=== PATIENT | male | born 1995 | race Caucasian/White ===

== ENCOUNTER 2025-08-20 15:34 | Outpatient (AMB) | payer MEDICAID, SELFPAY ==
--- NOTE | 2025-08-20 15:54 | A.OFFVIS_ITS ---
Intake Visit Reasons: f/u Accompanied by: Parent Allergies No Known Allergies Allergy (Verified 08/20/25 15:58) Medication List - Last Reconciled 08/20/25 by Concha Baltazar CNP fluoxetine 20 mg PO DAILY levetiracetam 500 mg PO BID 90 days melatonin-lemon balm leaf extr 10-1 mg 1 tab PO BEDTIME HPI Comments Details: 30-year-old man with severe autism resulting in inability to communicate with seizure disorder. The first one happened in 2021. He was at home with his father and eating when suddenly he became unresponsive, stiffened, his eyes rolled back, and started to shake. He was choking and his father took the food out of his mouth. He shook for a few minutes and his face became blue. EMS was called a nd he was still not back to baseline when they arrive. He was taken to [facility] where his brain scan apparently was ok and an EEG was ok. [facility] doctors suggested video EEG monitoring but his father was not comfortable leaving him in the hospital. He had seizure on 06/29/2024. He was sitting down and fell forward on the ground where he started shaking for about 90 seconds. He was taken to [facility] and found to have low levetiracetam levels. He was doing okay. He was taking levetiracetam twice a day. No medication side effects. No further spells. Sleep was okay. [facility] Medical History (Updated 08/20/25 @ 15:58 by Concha Baltazar CNP) Generalized seizure disorder Autism Review of Systems Const Denies chills, Denies daytime sleepiness, Denies difficulty sleeping, Denies fatigue, Denies fever(s), Denies frequent falls, Denies headache(s), Denies increased appetite, Denies poor appetite, Denies snoring, Denies weakness, Denies weight gain and Denies weight loss Eyes Denies loss of vision ENT Denies vertigo, Denies dizziness and Denies headache(s) Card Denies chest pain at rest, Denies chest pain with activity, Denies syncope, Denies leg edema and Denies palpitations Resp Denies snoring GI Denies constipation, Denies heartburn, Denies diarrhea and Denies nausea Denies urinary frequency, Denies urinary incontinence and Denies urinary urgency Musc Denies abnormal gait, Denies numbness and Denies tingling Skin/Breast Denies dry skin and Denies rash Neuro Denies abnormal gait, Denies vertigo, Denies dizziness, Denies syncope, Denies frequent falls, Denies headache(s), Denies lack of coordination, Denies loss of vision, Denies memory loss, Denies numbness, Denies restless legs, Denies seizure-like activity, Denies tingling, Denies paresthesias, Denies tremor(s) and Denies weakness Psych Denies anxiety, Denies depression, Denies auditory hallucinations, Denies memory loss, Denies visual hallucinations and Denies suicidal ideation Endo Denies fatigue and Denies palpitations Physical Exam Const Other: General Appearance:? normal, in no acute distress. Skin:? no rashes, no significant birthmarks. Heart:? S1, S2 normal, no murmurs. Lungs:? clear anteriorly and posteriorly. Extremities:? no edema. Psych:? alert, oriented, cognitive function intact, cooperative with exam. Neuro Other: Mental Status:?Alert and awake with limited verbal output. Makes noises. Calm Cranial Nerves:?Pupils are equal, round and reactive to light. External occular muscles are intact. Visual early are full. Face is symmetrical. Facial sensations are normal. Tongue is midline. Palate elevates symmetrically. Shoulder shrugging is normal. Hearing to bedside conversation is normal. Sensory Exam:?....? Coordination:?No ataxia,?no titubation.? Gait Exam: Within normal limits. Cerebellar Signs:?[id number] is okay. Extrapyramidal System:?No tremor, rigidity with normal facial expressions.? Pronator Drift:?Not present.? Involuntary Movements:?No tremors seen.? Speech:?Normal.? Results Reviewed Results Reviewed: Routine EEG at off in March 2024: OK. Assessment & Plan Assessment & Plan (1) Generalized seizure disorder: Code(s): G40.309 - Generalized idiopathic epilepsy and epileptic syndromes, not intractable, without status epilepticus Category: Medical Plan: Continue levetiracetam 500mg 1 tablet twice a day. Medications: Refilled levetiracetam 500 mg PO BID 180 tabs 1RF 90 days Coding Level of Care Code Est Pt Level 4 (56431) Diagnoses Generalized seizure disorder G40.309
== END 2025-08-20 16:20 | disposition home or self-care (01) ==
LOC: HO.HSM 15:34
PROVIDERS: PCP Internal Medicine; Visit Provider Registered Nurse
DX: G40.309 Generalized idiopathic epilepsy and epileptic syndromes, not intractable, without status epilepticus (principal)
CPT/HCPCS: 99214

== ENCOUNTER → 2025-08-20 15:34 | Outpatient (BNVA) | payer MEDICAID, SELFPAY | PROVIDERS: PCP Internal Medicine; Visit Provider Registered Nurse | DX: G40.309 Generalized idiopathic epilepsy and epileptic syndromes, not intractable, without status epilepticus (principal) | CPT/HCPCS: 99212 ==